=== PATIENT | male | born 1955 | race Caucasian/White ===

== ENCOUNTER 2018-12-26 05:54 | Day surgery (SDC) | payer OTHER ==
[2018-12-26] MEDS ORDERED: PROPOFOL 60 ML (08:12)
== END 2018-12-26 10:41 | disposition home or self-care (01) ==
LOC: GIL 05:54
DX: Z12.11 Encounter for screening for malignant neoplasm of colon (principal); D12.4 Benign neoplasm of descending colon; K64.8 Other hemorrhoids; K64.4 Residual hemorrhoidal skin tags; K21.0 Gastro-esophageal reflux disease with esophagitis; J44.9 Chronic obstructive pulmonary disease, unspecified; F17.200 Nicotine dependence, unspecified, uncomplicated
CPT/HCPCS: 43239; 88305; 88313